=== PATIENT | female | born 1960 | race Caucasian/White ===

== ENCOUNTER 2017-11-25 01:59 | Emergency (ER) | payer BC ==
[~2017-11-25] VITALS: Ht 160 cm; Wt 75.4 kg
[~2017-11-25 01:59] MED LIST: EFFEXOR XR150 MG PO; ENDOCET 5-3251 EACH PO; OxyCONTIN PO; PRILOSEC20 MG PO
[2017-11-25 02:29] LABS: HEMATOCRIT 38.5 % (36.0-46.0); HEMOGLOBIN 12.8 G/DL (11.9-15.5); MCH 31.2 PG (29.0-34.0); MCHC 33.2 G/DL (30.0-36.0); MCV 93.9 FL (83-99); PLATELET COUNT 132 K/uL (156-360); RBC DIS.WIDTH-CV 13.6 % (11.8-14.6); RBC DIS.WIDTH-SD 46.5 % (39-53); WHITE BLOOD COUNT 6.9 K/uL (4.1-10.2)
[2017-11-25 02:39] LABS: CHLORIDE 109 mEq/L (99-109); POTASSIUM 3.6 mEq/L (3.7-5.4); SODIUM 142 mEq/L (136-147)
[2017-11-25 02:41] LABS: GLUCOSE 113 mg/dL (70-99)
[2017-11-25 02:44] LABS: CREATININE 0.7 mg/dL (0.6-1.3); GFR ESTIMATE (CALCULATED) > 59 mL/min/
[2017-11-25 02:45] LABS: UREA NITROGEN (BUN) 11 mg/dL (9-23)
[2017-11-25] MEDS ORDERED: PROAIR HFA8.5 GM IH (03:37)
[2017-11-25] MEDS ORDERED: MORGIDOX100 MG PO (03:37)
[2017-11-25 04:29] VITALS: BP 152/85
== END 2017-11-25 04:30 | disposition home or self-care (01) ==
LOC: EME 01:59
DX: J40 Bronchitis, not specified as acute or chronic (principal); K21.9 Gastro-esophageal reflux disease without esophagitis; F32.9 Major depressive disorder, single episode, unspecified
CPT/HCPCS: 71046; 80048; 85027; 87502; 94640; 99281; 99283